=== PATIENT | female | born 1980 | race Caucasian/White ===

== ENCOUNTER → 2019-04-28 | Outpatient (CLI) | payer OTHER ==
[2019-04-28 10:28] LABS: BASO # 0.1 (0.02-0.10); EOS # 0.2 (0.04-0.40); EOS % 2.1 % (1.0-5.0); HEMATOCRIT 40.8 % (37.0-47.0); LYMPH# 1.9 (1.50-4.00); MEAN CELL VOLUME 88 fl (78-100); MEAN CORPUSCULAR HEMOGLOBIN 28 pg (27-31); MEAN CORPUSCULAR HGB CONC 32 g/dL (33-37); MEAN PLATELET VOLUME 9.6 fl (7.4-10.4); MONO # 0.3 (0.20-0.80); NEU # 5.3 (1.40-6.50); PLATELET COUNT 334 K/mm3 (130-400); RED BLOOD COUNT 4.64 M/mm3 (4.10-5.30); RED CELL DISTRIBUTION WIDTH 13.2 % (11.5-14.5); WHITE BLOOD COUNT 7.7 K/mm3 (4.8-10.8)
[2019-04-28 10:40] LABS: ALBUMIN 4.2 g/dL (3.5-5.0)
[2019-04-28 10:41] LABS: CALCIUM 9.3 mg/dL (8.3-10.5)
[2019-04-28 10:42] LABS: TOTAL PROTEIN 7.3 g/dL (6.4-8.3)
[2019-04-28 10:44] LABS: TOTAL BILIRUBIN 0.7 mg/dL (0.2-1.2)
== END ==
LOC: LAB 10:08
PROVIDERS: Physician Assistant
DX: Z12.31 Encounter for screening mammogram for malignant neoplasm of breast (principal); Z13.29 Encounter for screening for other suspected endocrine disorder; Z13.220 Encounter for screening for lipoid disorders; Z76.89 Persons encountering health services in other specified circumstances; G43.909 Migraine, unspecified, not intractable, without status migrainosus; F32.9 Major depressive disorder, single episode, unspecified; I34.1 Nonrheumatic mitral (valve) prolapse; F41.9 Anxiety disorder, unspecified; J45.909 Unspecified asthma, uncomplicated; M62.89 Other specified disorders of muscle

== ENCOUNTER → 2019-05-05 | Outpatient (CLI) | payer OTHER ==
[2019-05-05 15:41] LABS: LIPASE 17 U/L (8-78)
== END ==
LOC: LAB 14:56
DX: K59.00 Constipation, unspecified (principal); R19.7 Diarrhea, unspecified; R12 Heartburn; R11.2 Nausea with vomiting, unspecified

== ENCOUNTER → 2019-05-06 | Outpatient (CLI) | payer OTHER ==
[2019-05-20 10:33] LABS: CALPROTECTIN A
== END ==
LOC: LAB 13:19
DX: K59.00 Constipation, unspecified (principal); R19.7 Diarrhea, unspecified; R11.2 Nausea with vomiting, unspecified; R12 Heartburn

== ENCOUNTER → 2019-05-18 | Outpatient (CLI) | payer OTHER | LOC: RAD 07:24 | DX: Z13.29 Encounter for screening for other suspected endocrine disorder (principal); Z13.220 Encounter for screening for lipoid disorders; Z76.89 Persons encountering health services in other specified circumstances; N64.59 Other signs and symptoms in breast; M62.89 Other specified disorders of muscle; F32.9 Major depressive disorder, single episode, unspecified; F41.9 Anxiety disorder, unspecified; J45.909 Unspecified asthma, uncomplicated; I34.1 Nonrheumatic mitral (valve) prolapse; R10.9 Unspecified abdominal pain; R11.0 Nausea ==

== ENCOUNTER 2019-07-14 00:34 | Emergency (ER) | payer OTHER ==
[~2019-07-14] VITALS: Ht 160 cm; Wt 90.9 kg
[2019-07-14] MEDS ORDERED: CARAFATE 1GM1 G PO (00:54)
[2019-07-14] MEDS ORDERED: OMEPRAZOLE40 MG PO (00:55)
[2019-07-14] MEDS ORDERED: LEXAPRO20 M1 PO (00:55)
[2019-07-14] MEDS ORDERED: PROBIOTIC1 EACH PO (00:56)
[2019-07-14 01:26] LABS: BASO # 0.1 (0.02-0.10); EOS # 0.4 (0.04-0.40); EOS % 5.1 % (1.0-5.0); HEMATOCRIT 40.8 % (37.0-47.0); LYMPH# 2.6 (1.50-4.00); MEAN CELL VOLUME 88 fl (78-100); MEAN CORPUSCULAR HEMOGLOBIN 28 pg (27-31); MEAN CORPUSCULAR HGB CONC 32 g/dL (33-37); MEAN PLATELET VOLUME 9.8 fl (7.4-10.4); MONO # 0.4 (0.20-0.80); NEU # 5.1 (1.40-6.50); PLATELET COUNT 396 K/mm3 (130-400); RED BLOOD COUNT 4.63 M/mm3 (4.10-5.30); RED CELL DISTRIBUTION WIDTH 13.1 % (11.5-14.5); WHITE BLOOD COUNT 8.6 K/mm3 (4.8-10.8)
[2019-07-14 01:32] LABS: ALBUMIN 4.1 g/dL (3.5-5.0); POTASSIUM 4.3 mmol/L (3.5-5.1)
[2019-07-14 01:33] LABS: CALCIUM 8.7 mg/dL (8.3-10.5)
[2019-07-14 01:34] LABS: TOTAL PROTEIN 7.5 g/dL (6.4-8.3)
[2019-07-14 01:36] LABS: TOTAL BILIRUBIN 0.3 mg/dL (0.2-1.2)
[2019-07-14 01:40] LABS: URINE APPEARANCE HAZY; URINE BILIRUBIN NEGATIVE (NEGATIVE); URINE BLOOD NEGATIVE (NEGATIVE); URINE COLOR YELLOW; URINE GLUCOSE NEGATIVE (NEGATIVE); URINE KETONE NEGATIVE (NEGATIVE); URINE LEUKOCYTE ESTERASE TRACE (NEGATIVE); URINE NITRATE NEGATIVE (NEGATIVE); URINE PROTEIN(semi-quant) TRACE mg/dL (NEGATIVE); URINE UROBILINOGEN NORMAL (NORMAL)
[2019-07-14] MEDS ORDERED: BACTRIM DS TAB1 EACH PO (03:08)
[2019-07-14] MEDS ORDERED: DIFLUCAN150 M1 PO (03:08)
[2019-07-14 03:16] VITALS: BP 139/57
== END 2019-07-14 03:16 | disposition home or self-care (01) ==
LOC: ED 00:34
PROVIDERS: Nurse Practitioner
DX: R10.9 Unspecified abdominal pain (principal); G89.29 Other chronic pain; F17.210 Nicotine dependence, cigarettes, uncomplicated; G43.909 Migraine, unspecified, not intractable, without status migrainosus; Z90.49 Acquired absence of other specified parts of digestive tract
CPT/HCPCS: J2405; J2550; J7030; Q9967